=== PATIENT | female | born 1955 | race African-American/Black ===

== ENCOUNTER 2018-09-30 08:30 | Day surgery (SDC) | payer BC ==
[~2018-09-30 08:30] MED LIST: ANUCORT-HC25 MG RE; ASPIRIN81 MG PO; B12 FAST DIS5000 MCG PO; CALCIUM PO; CLIMARA0.1 MG/24; D32000 UNIT PO; DIOVAN HCT PO; GREEN PO; GREEN TEA EXTR150 MG; LOSARTAN POT25 MG PO; METFORMIN500 MG PO; PRILOSEC20 MG PO; VITAMIN PO; [UNRECOGNIZED DRUG - OTHER]
[2018-09-30 11:10] VITALS: BP 114/68
== END 2018-09-30 10:20 | disposition home or self-care (01) | DRG 951 ==
LOC: ENDO 08:30
PROVIDERS: ATTEND Surgery
PROC: 0DJD8ZZ Inspection of Lower Intestinal Tract, Via Natural or Artificial Opening Endoscopic (ICD-10-PCS; principal; 2018-09-30)
DX: Z12.11 Encounter for screening for malignant neoplasm of colon (principal); I10 Essential (primary) hypertension; Z80.0 Family history of malignant neoplasm of digestive organs